=== PATIENT | male | born 1980 | race Caucasian/White ===

== ENCOUNTER 2017-12-14 20:03 | Emergency (ER) | payer BC ==
[~2017-12-14] VITALS: Ht 180.3 cm; Wt 81.6 kg
[2017-12-14] MEDS ORDERED: NAPROSYN500 MG PO (21:08)
[2017-12-14] MEDS ORDERED: CEPHALEXIN500 M1 PO (21:08)
== END 2017-12-14 21:14 | disposition home or self-care (01) ==
LOC: ED 20:03
DX: S61.012A Laceration without foreign body of left thumb without damage to nail, initial encounter (principal); W26.8XXA Contact with other sharp object(s), not elsewhere classified, initial encounter; Y93.89 Activity, other specified; Y92.89 Other specified places as the place of occurrence of the external cause; Y99.8 Other external cause status

== ENCOUNTER → 2017-12-16 | Outpatient (CLI) | payer BC ==
[~2017-12-16] MED LIST: CEPHALEXIN500 M1 PO; NAPROSYN500 MG PO
== END | disposition home or self-care (01) ==
LOC: WOUNDCARE 05:33
DX: S61.012A Laceration without foreign body of left thumb without damage to nail, initial encounter (principal); W31.2XXA Contact with powered woodworking and forming machines, initial encounter; Y93.89 Activity, other specified; Y92.89 Other specified places as the place of occurrence of the external cause; Y99.8 Other external cause status

== ENCOUNTER → 2017-12-22 | Outpatient (CLI) | payer BC | END | disposition home or self-care (01) | LOC: WOUNDCARE 04:35 | DX: S61.012A Laceration without foreign body of left thumb without damage to nail, initial encounter (principal); W31.2XXA Contact with powered woodworking and forming machines, initial encounter ==

== ENCOUNTER → 2018-01-05 | Outpatient (CLI) | payer BC | END | disposition home or self-care (01) | LOC: WOUNDCARE 15:13 | DX: S61.012D Laceration without foreign body of left thumb without damage to nail, subsequent encounter (principal); W31.2XXD Contact with powered woodworking and forming machines, subsequent encounter ==

== ENCOUNTER → 2018-01-13 | Outpatient (CLI) | payer BC | END | disposition home or self-care (01) | LOC: WOUNDCARE 13:45 | DX: S61.012D Laceration without foreign body of left thumb without damage to nail, subsequent encounter (principal); W31.2XXD Contact with powered woodworking and forming machines, subsequent encounter ==